=== PATIENT | female | born 1980 | race Caucasian/White ===

== ENCOUNTER → 2016-09-23 | Outpatient (CLI) | payer MEDICAID ==
--- NOTE | 2016-09-24 09:43 | XR ---
EXAMINATION TYPE: XR foot complete RT DATE OF EXAM: 09/23/2016 9:48 AM COMPARISON: NONE HISTORY: Pain TECHNIQUE: Three views are submitted. FINDINGS: The osseous structures are intact and mild arthropathy first MTP joint. Large calcaneal spur noted. S clerotic lesion overlying the calcaneus most likely related to bone island.. There is no acute fract ure or dislocation. IMPRESSION: 1. No acute fracture or dislocation. If symptoms persist, follow-up exam in 7 to 10 days could be ob tained.
== END | disposition home or self-care (01) ==
LOC: RADXRYALE 09:45
PROVIDERS: ATTEND Physician Assistant Medical
DX: M79.671 Pain in right foot (principal)

== ENCOUNTER → 2020-12-25 | Outpatient (CLI) | payer MEDICAID ==
[2020-12-25 09:01] VITALS: BP 131/88; PULSE 61; RESP 16; TEMP 98.2
--- NOTE | 2020-12-25 09:48 | P.HPOB ---
History of Present Illness H&P Date: 12/25/20 Chief Complaint: The patient is here for her routine gynecologic exam. This is a 40-year-old 032 with an LMP of 12/16/2020. The patient is here to establish with this office. Her is status post vasectomy. It has been about 5 years since her last pelvic exam. She is without gynecologic complaints and denies any postmenopausal bleeding. Menstrual periods are regular every month. Review of Systems The patient has lost 60 pounds over the last couple of years with regular exercise. She denies respiratory, cardiac, or G.I. problems. Past Medical History Past Medical History: Asthma Additional Past Medical History / Comment(s): Obesity. 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 History of Any Multi-Drug Resistant Organisms: None Reported Past Surgical History: No Surgical Hx Reported Past Anesthesia/Blood Transfusion Reactions: No Reported Reaction Past Psychological History: No Psychological Hx Reported Smoking Status: Never smoker Past Alcohol Use History: Rare (0-1 per month.) Past Drug Use History: None Reported Additional History: She has been since 2002. She works at the [employer] in [place]. - Past Family History Father Family Medical History: AFIB Additional Family Medical History / Comment(s): Paternal grandmother had diabetes. Mother Family Medical History: No Reported History Additional Family Medical History / Comment(s): Maternal grandmother had a brain tumor. Medications and Allergies Home Medications Medication Instructions Recorded Confirmed Type Albuterol Inhaler [Ventolin Hfa 1 puff INHALATION DAILY PRN 12/25/20 12/25/20 History Inhaler] Allergies Allergy/AdvReac Type Severity Reaction Status Date / Time No Known Allergies Allergy Verified 12/25/20 08:58 Exam Vital Signs Temp Pulse Resp BP Pulse Ox 12/25/20 08:59 98.2 F 61 16 131/88 98 Intake and Output 12/24/20 12/25/20 12/25/20 22:59 06:59 14:59 Other: Weight 126.552 kg Height 5 feet 3-1/2 inches, weight 279 pounds, BMI 40.6. This is a well-developed well-nourished heavyset white female who is alert and oriented times 3 in no acute distress. HEENT: Within normal limits. NECK: Supple without mass or thyromegaly. CHEST AND LUNGS: Clear to auscultation. HEART: Regular rate and rhythm. BREASTS: Are without mass or discharge. AXILLARY EXAM: Negative for adenopathy. BACK: Negative for CVA tenderness. ABDOMEN: Soft, nontender, without palpable masses. PELVIC EXAM: Normal external genitalia. Cervix and vagina appear normal. There is no unusual discharge. There is no evidence of prolapse. The uterus is midposition, nongravid size and nontender. There are no palpable adnexal masses or tenderness. RECTAL EXAM: negative for mass or tenderness. EXTREMITIES: Nontender. IMPRESSION: 1. 40-year-old female whose is status post vasectomy, with normal gynecologic exam. 2. Obesity with successful weight loss with exercise regimen. PLAN: 1. Pap smear cotest was performed. 2. Self breast awareness was discussed with the patient. She has also been made aware of the symptoms associated with inflammatory breast cancer. 3. Plan baseline screening mammogram at age 41. 4. Osteoporosis prevention was discussed. I have stressed the importance of adequate calcium, vitamin D and regular exercise. Recommended amounts of calcium and vitamin D were also discussed. 5. She was advised to return in one year for her annual well woman exam.
== END ==
LOC: WWCWWP 08:39
PROVIDERS: ATTEND Obstetrics & Gynecology
DX: Z01.419 Encounter for gynecological examination (general) (routine) without abnormal findings (principal); E66.9 Obesity, unspecified; J45.909 Unspecified asthma, uncomplicated; Z68.41 Body mass index [BMI] 40.0-44.9, adult

== ENCOUNTER → 2021-06-01 | Outpatient (CLI) | payer MEDICAID | END | disposition home or self-care (01) | LOC: LABWHC1 11:27 | PROVIDERS: ATTEND Emergency Medicine | DX: U07.1 COVID-19 (principal) | CPT/HCPCS: 87635 ==

== ENCOUNTER → 2021-11-05 | Outpatient (CLI) | payer MEDICAID ==
--- NOTE | 2021-11-06 08:15 | XR ---
Left knee HISTORY: [id number] LT KNEE PAIN,ILIOTIBIAL SYN 3 views the left knee There is mild spurring at the patellofemoral joint. There may be a small suprapatellar joint effusion . Alignment and bone mineralization are maintained. Joint space loss is mild in the 3 compartments. S purring is also present in the medial and lateral compartments, there is no fracture or dislocation. IMPRESSION: Osteoarthritis.
== END | disposition home or self-care (01) ==
LOC: RADXRYALE 16:19
PROVIDERS: ATTEND Physician Assistant Medical
DX: M17.12 Unilateral primary osteoarthritis, left knee (principal)

== ENCOUNTER → 2022-04-07 | Outpatient (CLI) | payer MEDICAID ==
[2022-04-07 15:53] VITALS: BP 138/81; PULSE 61; RESP 17; TEMP 98.8
--- NOTE | 2022-04-07 16:50 | P.HPOB ---
History of Present Illness H&P Date: 04/07/22 Chief Complaint: The patient is here for her routine gynecologic exam and ma mmogram. This is a 42-year-old 032 with an LMP of 03/13/2022. The patient's is status post vasectomy. She is without gynecologic complaints. She states her menstrual period are regular every month. Review of Systems The patient has gained 12 pounds over the last year. She denies respiratory, cardiac, or G.I. problems. Past Medical History Past Medical History: Asthma Additional Past Medical History / Comment(s): Obesity. Small umbilical hernia. 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 History of Any Multi-Drug Resistant Organisms: None Reported Past Surgical History: No Surgical Hx Reported Past Anesthesia/Blood Transfusion Reactions: No Reported Reaction Past Psychological History: No Psychological Hx Reported Smoking Status: Never smoker Past Alcohol Use History: Occasional (0-1 per month) Past Drug Use History: None Reported Additional History: She has been since 2002. She works at the [employer] in [place]. - Past Family History Mother Family Medical History: No Reported History Additional Family Medical History / Comment(s): Maternal grandmother had a brain tumor. Father Family Medical History: AFIB Additional Family Medical History / Comment(s): Paternal grandmother had diabetes. Medications and Allergies Home Medications Medication Instructions Recorded Confirmed Type Albuterol Inhaler [Ventolin Hfa 1 puff INHALATION DAILY PRN 12/25/20 04/07/22 History Inhaler] Allergies Allergy/AdvReac Type Severity Reaction Status Date / Time No Known Allergies Allergy Verified 04/07/22 15:48 Exam Vital Signs Temp Pulse Resp BP Pulse Ox 04/07/22 15:49 98.8 F 61 17 138/81 98 Intake and Output 04/07/22 04/07/22 04/07/22 06:59 14:59 22:59 Other: Weight 131.995 kg Height 5 feet 3 inches, weight 291 pounds, BMI 51.5. This is a well-developed well-nourished heavyset white female who is alert and oriented times 3 in no acute distress. HEENT: Within normal limits. NECK: Supple without mass or thyromegaly. CHEST AND LUNGS: Clear to auscultation. HEART: Regular rate and rhythm. BREASTS: Are without mass or discharge. AXILLARY EXAM: Negative for adenopathy. BACK: Negative for CVA tenderness. ABDOMEN: Soft, nontender, without palpable masses. PELVIC EXAM: Normal external genitalia. Cervix and vagina appear normal. There is no unusual discharge. There is no evidence of prolapse. The uterus is midposition, nongravid size and nontender. There are no palpable adnexal masses or tenderness. Bimanual examination is somewhat limited secondary to her size. RECTAL EXAM: negative for mass or tenderness and is negative for occult blood. EXTREMITIES: Nontender. IMPRESSION: 1. 42-year-old female whose is status post vasectomy, with normal gynecologic exam. 2. Obesity with weight gain over the past year. This was after losing 60 pounds the year before. PLAN: 1. Pap smear was deferred since she had a negative Pap smear, test on 12/25/2020. 2. Self breast awareness was discussed with the patient. We have also discussed symptoms associated with inflammatory breast cancer. 3. Baseline screening mammogram will be done today. 4. Osteoporosis prevention was discussed. I have stressed the importance of adequate calcium, vitamin D and regular exercise. Recommended amounts of calcium and vitamin D were also discussed. 5. Weight control was discussed. I have stressed the importance of good nutrition, regular meals, adequate fiber, and regular exercise. 6. She has not had a Covid vaccination and has not had Covid in the past. She understands there can be consequences if she did contract Covid. She understands vaccinations are readily available at this time. She will consider being vaccinated. 7. She was advised to return in one year for her annual well woman exam.
--- NOTE | 2022-04-08 08:50 | MM ---
Reason for Exam: Screening (asymptomatic). Patient History: Menarche at age 14. First Full-Term at age 23. Patient has history of breast feeding. Last menstrual period: 03/10/2022 Risk Values: Meghan 5 year model risk: 0.5%. NCI Lifetime model risk: 9.0%. Tissue Density: The breast tissue is heterogeneously dense. This may lower the sensitivity of mammography. Findings: Analyzed By CAD. There is no suspicious group of microcalcifications or new suspicious mass in either breast. Overall Assessment: Negative, BI-RAD 1 Management: Screening Mammogram of both breasts in 1 year. A clinical breast exam by your physician is recommended on an annual basis and results should be correlated with mammographic findings. [facility] will attempt to contact patient to return for supplemental views and ultrasound if indicated. Electronically signed and approved by: Cali Varela DO
== END | disposition home or self-care (01) ==
LOC: WWCWWP 15:40
PROVIDERS: ATTEND Obstetrics & Gynecology
DX: Z53.9 Procedure and treatment not carried out, unspecified reason (principal)
CPT/HCPCS: 77063; 77067

== ENCOUNTER → 2024-03-07 | Outpatient (CLI) | payer BC ==
--- NOTE | 2024-03-07 15:17 | P.HPOB ---
History of Present Illness H&P Date: 03/07/24 Chief Complaint: The patient is here for her routine gynecologic exam and ma mmogram. This is a 43-year-old -0-3-2 with an LMP of 02/17/2024. The patient's is status post vasectomy. She is without gynecologic complaints. She states her menstrual periods are regular every month. Review of Systems The patient has lost 49 pounds over the last 2 years. The weight loss has been intentional and she has done this with diet and exercise. She denies respiratory, cardiac, or G.I. problems. Past Medical History Past Medical History: Asthma Additional Past Medical History / Comment(s): Obesity. Small umbilical hernia. 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 History of Any Multi-Drug Resistant Organisms: None Reported Past Surgical History: No Surgical Hx Reported Past Anesthesia/Blood Transfusion Reactions: No Reported Reaction Past Psychological History: No Psychological Hx Reported Smoking Status: Never smoker Past Alcohol Use History: Occasional (0-1 per month) Past Drug Use History: None Reported - Past Family History Mother Family Medical History: No Reported History Additional Family Medical History / Comment(s): Maternal grandmother had a brain tumor. Father Family Medical History: AFIB Additional Family Medical History / Comment(s): Paternal grandmother had diabetes. Medications and Allergies Home Medications Medication Instructions Recorded Confirmed Type Albuterol Inhaler [Ventolin Hfa 1 puff INHALATION DAILY PRN 12/25/20 04/07/22 History Inhaler] Allergies Allergy/AdvReac Type Severity Reaction Status Date / Time No Known Allergies Allergy Verified 04/07/22 15:48 Exam Blood pressure 137/80, height 5 feet 3 inches, weight 242 pounds, temperature 98.3, pulse 58, pulse oximeter 99%. BMI 43. This is a well-developed well-nourished heavyset white female who is alert and oriented times 3 in no acute distress. HEENT: Within normal limits. NECK: Supple without mass or thyromegaly. CHEST AND LUNGS: Clear to auscultation. HEART: Regular rate and rhythm. BREASTS: Are without mass or discharge. AXILLARY EXAM: Negative for adenopathy. BACK: Negative for CVA tenderness. ABDOMEN: Soft, nontender, without palpable masses. PELVIC EXAM: Normal external genitalia. Cervix and vagina appear normal. There is no unusual discharge. There is no evidence of prolapse. The uterus is midposition, nongravid size and nontender. There are no palpable adnexal masses or tenderness. Bimanual examination is somewhat limited secondary to her size. RECTAL EXAM: negative for mass or tenderness and is negative for occult blood. EXTREMITIES: Nontender. IMPRESSION: 1. 43-year-old female whose is status post vasectomy, with normal gynecologic exam. 2. Obesity with significant weight loss over the past year. The weight loss was intentional with diet and exercise. PLAN: 1. Pap smear was deferred since she had a negative Pap smear cotest on 12/25/2020. 2. Self breast awareness was discussed with the patient. We have also discussed symptoms associated with inflammatory breast cancer. 3. Screening mammogram will be done today. 4. Osteoporosis prevention was discussed. I have stressed the importance of adequate calcium, vitamin D and regular exercise. Recommended amounts of calcium and vitamin D were also discussed. 5. She was advised to return in one year for her annual well woman exam.
[2024-03-07 15:22] VITALS: BP 137/80; PULSE 58; RESP 17; TEMP 98.3
--- NOTE | 2024-03-08 08:13 | MM ---
Reason for Exam: Screening (asymptomatic). Last mammogram was performed 1 year(s) and 11 month(s) ago. Patient History: Menarche at age 14. First Full-Term at age 23. Patient has history of breast feeding. Last menstrual period: 02/17/2024 Risk Values: Meghan 5 year model risk: 0.6%. NCI Lifetime model risk: 8.9%. Prior Study Comparison: 04/07/2022 Bilateral MG 3D screening mammo w/cad, [facility]. Tissue Density: The breasts are heterogeneously dense, which may obscure small masses. Findings: Analyzed By CAD. Benign calcifications. No suspicious grouped calcifications. There is a nodular density in the inner central margin of the left breast for which spot compression view recommended. Overall Assessment: Incomplete: need additional imaging evaluation, BI-RAD 0 Management: Diagnostic Mammogram of the left breast. . Patient should continue monthly self-breast exams. A clinical breast exam by your physician is recommended on an annual basis. This exam should not preclude additional follow-up of suspicious palpable abnormalities. Note on Meghan scores and lifetime risk: 1. A Meghan score greater than 3% is considered moderate risk. If this is the case, consider specialist referral to assess eligibility for a risk reducing agent. 2. If overall lifetime risk for the development of breast cancer is 20% or higher, the patient may qualify for future screening with alternating mammogram and breast MRI. [facility], , 03/08/2024 8:09 AM. Electronically signed and approved by: Franko Irby M.D. Radiologis
== END ==
LOC: WWCWWP 14:38
PROVIDERS: ATTEND Obstetrics & Gynecology
CPT/HCPCS: 77063; 77067

== ENCOUNTER → 2024-03-14 | Outpatient (CLI) | payer BC ==
--- NOTE | 2024-03-14 08:46 | MM ---
Reason for Exam: Additional evaluation requested from prior study. Last screening mammogram was performed less than 1 month ago. Patient History: Menarche at age 14. First Full-Term at age 23. Patient has history of breast feeding. Risk Values: Meghan 5 year model risk: 0.6%. NCI Lifetime model risk: 8.9%. Prior Study Comparison: 04/07/2022 Bilateral MG 3D screening mammo w/cad, [facility]. 03/07/2024 Bilateral MG 3D screening mammo w/cad, [facility]. Tissue Density: Left: The breasts are heterogeneously dense, which may obscure small masses. Findings: Analyzed By CAD. The prominent retroareolar ducts without suspicious nodule or mass. Overall Assessment: Benign, BI-RAD 2 Management: Screening Mammogram of both breasts in 1 year. . Results were given to the patient verbally at the time of exam. Patient should continue monthly self-breast exams. A clinical breast exam by your physician is recommended on an annual basis. This exam should not preclude additional follow-up of suspicious palpable abnormalities. Note on Meghan scores and lifetime risk: 1. A Meghan score greater than 3% is considered moderate risk. If this is the case, consider specialist referral to assess eligibility for a risk reducing agent. 2. If overall lifetime risk for the development of breast cancer is 20% or higher, the patient may qualify for future screening with alternating mammogram and breast MRI. [facility], , 03/14/2024 8:43 AM. Electronically signed and approved by: Beau Moreno M.D. Radiologis
== END | disposition home or self-care (01) ==
LOC: RADMAMWWP 08:21
PROVIDERS: ATTEND Obstetrics & Gynecology
CPT/HCPCS: 77061; 77065